=== PATIENT | male | born 1930 | race Caucasian/White ===

== ENCOUNTER 2018-03-10 11:54 | Day surgery (SDC) | payer MEDICARE ==
[~2018-03-10] VITALS: Ht 170.2 cm; Wt 67.1 kg
[~2018-03-10 11:54] MED LIST: ASPIRIN E.C. 8181 MG PO; B COMPLEX1 TA2 PO; CALCIUM1 CAP PO; CIPRO 500MG TA500 MG PO; ELITE MAGNESIUM1 TAB PO; FLOMAX 0.40.4 MG/CAP PO; LEVAQUIN 5500 MG/TA1 PO; NATURAL E400 IU PO; PYRIDIUM 100MG100 MG PO; TIMOPTIC 0.25%-10 OU; VITAMIN C500 MG PO; VITAMIN D3400 I1 PO
[2018-03-10 12:39] VITALS: BP 144/50; PULSE 63; TEMP 97.7
[2018-03-10] MEDS ORDERED: VENTOLIN0.09 MG IH (13:41)
[2018-03-10] MEDS ORDERED: ALBUTEROL0.83 MG/ML IH (13:43)
[2018-03-10] MEDS ORDERED: LASIX 20MG TABL20 MG PO (13:44)
[2018-03-10] MEDS ORDERED: PROSCAR 5MG5 MG PO (13:44)
[2018-03-10] MEDS ORDERED: FLOMAX 0.40.4 MG/CAP PO (13:45)
[2018-03-10] MEDS ORDERED: BETIMOL 5 ML5 ML OU (13:45)
[2018-03-10] MEDS ORDERED: CIPRO 500MG TA500 MG PO (13:46)
[2018-03-10] MEDS ORDERED: ULTRAM 50MG TAB50 MG PO (13:46)
[2018-03-10 15:01] VITALS: TEMP 97.9
[2018-03-10 15:15] VITALS: BP 130/68; PULSE 57
[2018-03-10 15:30] VITALS: BP 106/65; PULSE 66
[2018-03-10 15:45] VITALS: BP 121/46; PULSE 65
== END 2018-03-10 16:25 | disposition home or self-care (01) ==
LOC: SDCO 11:54
DX: N21.0 Calculus in bladder (principal); I48.91 Unspecified atrial fibrillation; J44.9 Chronic obstructive pulmonary disease, unspecified; M19.90 Unspecified osteoarthritis, unspecified site; N40.1 Benign prostatic hyperplasia with lower urinary tract symptoms; R35.0 Frequency of micturition; R39.15 Urgency of urination
CPT/HCPCS: C1769; J1100; J2405; J2704; J3010; J7120